=== PATIENT | male | born 1985 | race Caucasian/White ===

== ENCOUNTER 2018-04-28 07:46 | Emergency (ER) | payer MEDICAID ==
[~2018-04-28] VITALS: Ht 175.3 cm; Wt 80.3 kg
--- NOTE | 2018-04-28 07:51 | NUR ---
PT AMBULATES TO BED 11
[2018-04-28 07:55] VITALS: BP 143/91
--- NOTE | 2018-04-28 08:01 | NUR ---
URINE CUP HANDED TO PT FOR SAMPLE----PT STATING UNABLE TO VOID AT THIS TIME
--- NOTE | 2018-04-28 08:01 | NUR ---
PATIENT PRESENTS TO ED WITH c/o intermittent sharp epigastric pain x 3 days; awoke today with pain and repeated emesis denies diarrhea---- SKIN IS PINK/WARM/DRY; AAOX4 WITH EVEN AND STEADY GAIT; LUNGS CLEAR BL; HR EVEN AND REGULAR; PT DENIES ANY FEVER, CP, SOB, OR COUGH AT THIS TIME; PATIENT STATES PAIN OF 10/10 AT THIS TIME; VSS; PATIENT POSITIONED FOR COMFORT; HOB ELEVATED; BEDRAILS UP X2; BED DOWN. ER MD MADE AWARE OF PT STATUS.
[2018-04-28] MEDS ORDERED: ONDANSETRON 4 MG/2 ML VIAL IVP ONE ×2 (08:05→10:00)
[2018-04-28] MEDS ORDERED: NACL 0.9% 1,000 ML IV SCH (08:05)
[2018-04-28] MEDS ORDERED: KETOROLAC 30 MG/ML VIAL IVP ONE (08:05)
[2018-04-28] MEDS ORDERED: PANTOPRAZOLE 40 MG INJ VIAL IVP ONE (08:05)
[2018-04-28 08:37] LABS: BASOPHILS % (AUTO) 0.2 % (0.0-2.0); EOSINOPHILS % (AUTO) 0.2 % (0.0-4.0); HEMOGLOBIN 14.9 g/dL (12.0-18.0); LYMPHOCYTES # (AUTO) 0.9 K/uL (2.0-11.5); LYMPHOCYTES % (AUTO) 7.3 % (20.5-51.1); MEAN CORPUSCULAR HEMOGLOBIN 31 pg (27-31); MEAN CORPUSCULAR HGB CONC 32 g/dL (33-37); MEAN CORPUSCULAR VOLUME 94.9 fL (80-94); MONOCYTES # (AUTO) 0.3 K/uL (0.8-1.0); MONOCYTES % (AUTO) 2.5 % (1.7-9.3); NEUTROPHILS # (AUTO) 11.1 K/uL (1.8-7.7); NEUTROPHILS % (AUTO) 89.8 % (42.2-75.2); PLATELET COUNT (AUTO) 235 K/uL (140-450); RED BLOOD CELL COUNT(AUTO) 4.85 MIL/uL (4.20-6.10); WHITE BLOOD COUNT (AUTO) 12.3 K/uL (4.8-10.8)
[2018-04-28 08:45] LABS: ANION GAP 11.5 (8-16); CARBON DIOXIDE 25.4 mmol/L (21-32); POTASSIUM 3.9 mmol/L (3.5-5.1)
[2018-04-28 08:50] LABS: ALBUMIN 4.3 g/dL (3.4-5.0); TOTAL BILIRUBIN 0.4 mg/dL (0.0-1.0)
[2018-04-28 10:44] VITALS: BP 121/62
--- NOTE | 2018-04-28 10:45 | NUR ---
Patient discharged with v/s stable. Written and verbal after care instructions given and explained. Patient alert, oriented and verbalized understanding of instructions. Ambulatory with steady gait. All questions addressed prior to discharge. ID band removed. Patient advised to follow up with PMD. Rx of pepcid/ zofran given. Patient educated on indication of medication including possible reaction and side effects. Opportunity to ask questions provided and answered.
== END 2018-04-28 10:45 | disposition home or self-care (01) ==
LOC: MED 07:46
DX: K29.70 Gastritis, unspecified, without bleeding (principal); Z88.0 Allergy status to penicillin
CPT/HCPCS: 36415; 80053; 83690; 85025; 96361; 96374; 96375; 96376; 99283; C9113; J1885; J2405; J7030

== ENCOUNTER 2018-07-20 16:17 | Emergency (ER) | payer MEDICAID ==
[~2018-07-20] VITALS: Ht 175.3 cm; Wt 72.7 kg
[2018-07-20 16:28] VITALS: BP 136/79
--- NOTE | 2018-07-20 16:36 | NUR ---
PT AMBULATED TO LOBBY AT THIS TIME WITH VSS.
--- NOTE | 2018-07-20 16:54 | NUR ---
PT AMBULATED TO ER BED 01
--- NOTE | 2018-07-20 16:54 | NUR ---
BIB SELF. AAO X4. C/O VOMITING BLOOD X5 TODAY. PT REPORTS CLEAR VOMIT LAST NIGHT AND THEN THIS MORNING IT CHANGED BRIGHT RED TO DARK BROWN THIS AM. PT REPORTS CRAMPING PAIN 8/10 IN ABD SIDES WHEN VOMITING. PT DENIES CP, SOB, COUGH. PT REPORTS DIARRHEA. PT REPORTS FEELING HOT, CURRENT TEMP 98.7. PT PLACED ON FULL THEOLOGY TEACHER. PT TO BE SEEN BY MD ER.
--- NOTE | 2018-07-20 17:00 | NUR ---
PT UNABLE TO GIVE URINE AT THIS TIME.
[2018-07-20 17:06] LABS: BASOPHILS # (AUTO) 0.1 K/uL (0.00-0.22); BASOPHILS % (AUTO) 0.4 % (0.0-2.0); EOSINOPHILS % (AUTO) 0.2 % (0.0-4.0); HEMATOCRIT 47.3 % (36-52); HEMOGLOBIN 16.2 g/dL (12.0-18.0); LYMPHOCYTES # (AUTO) 1.5 K/uL (2.0-11.5); LYMPHOCYTES % (AUTO) 7.9 % (20.5-51.1); MEAN CORPUSCULAR HEMOGLOBIN 32 pg (27-31); MEAN CORPUSCULAR HGB CONC 34 g/dL (33-37); MEAN CORPUSCULAR VOLUME 92.5 fL (80-94); MONOCYTES # (AUTO) 1.4 K/uL (0.8-1.0); MONOCYTES % (AUTO) 7.1 % (1.7-9.3); NEUTROPHILS # (AUTO) 16.1 K/uL (1.8-7.7); NEUTROPHILS % (AUTO) 84.4 % (42.2-75.2); PLATELET COUNT (AUTO) 249 K/uL (140-450); RED BLOOD CELL COUNT(AUTO) 5.11 MIL/uL (4.20-6.10); RED CELL DISTRIBUTION WIDTH 13.5 % (11.6-13.7); WHITE BLOOD COUNT (AUTO) 19.1 K/uL (4.8-10.8)
[2018-07-20 17:17] LABS: ANION GAP 15.2 (8-16); CARBON DIOXIDE 28.7 mmol/L (21-32); CREATININE 1.5 mg/dL (0.7-1.3); POTASSIUM 3.9 mmol/L (3.5-5.1)
[2018-07-20 17:23] LABS: ALBUMIN 5.1 g/dL (3.4-5.0); PROTHROMBIN TIME 10.2 secs (10.8-13.4); TOTAL BILIRUBIN 0.7 mg/dL (0.0-1.0)
--- NOTE | 2018-07-20 17:40 | NUR ---
DR RICE AT BEDSIDE FOR PT EVALUATION
[2018-07-20] MEDS ORDERED: ONDANSETRON 4 MG ODT PO ONE (17:50)
[2018-07-20] MEDS ORDERED: DICYCLOMINE HCL LIQUID 20 MG, ALUMINUM HYD/MAG/SIMETHICONE 30 ML, LIDOCAINE VISCOUS 2% ... PO ONE ×3 (17:50)
--- NOTE | 2018-07-20 18:00 | NUR ---
PT UNABLE TO GIVE URINE AT THIS TIME.
[2018-07-20 19:15] VITALS: BP 118/87
--- NOTE | 2018-07-20 19:15 | NUR ---
DISCHARGE INSTRUCTIONS GIVEN TO PT. 0/10 ABD PAIN, NO N/V. PT STATES FEELING 100% BETTER. A&OX4. VSS. RX OF MYLANTA AND ZOFRAN GIVEN. SIDE EFFECTS EXPLAINED. INSTRUCTED TO F/U WITH PCP AND WHEN TO RETURN TO ER. PT VERBALLIZED UNDERSTANDING OF DC INSTRUCTIONS. ALL QUETIONS ANSWERED.
== END 2018-07-20 19:15 | disposition home or self-care (01) ==
LOC: MED 16:17
DX: R10.9 Unspecified abdominal pain (principal); R11.10 Vomiting, unspecified; Z88.0 Allergy status to penicillin
CPT/HCPCS: 36415; 74176; 80053; 83690; 85025; 85610; 85730; 86886; 86900; 86901; 99284; Q0162

== ENCOUNTER 2018-07-22 12:54 | Emergency (ER) | payer MEDICAID ==
[~2018-07-22] VITALS: Ht 175.3 cm; Wt 72.6 kg
[2018-07-22 13:01] VITALS: BP 129/89
--- NOTE | 2018-07-22 13:01 | NUR ---
PT AMBULATED TO ER BED 03
--- NOTE | 2018-07-22 13:25 | NUR ---
PATIENT PRESENTS TO ED WITH SHARP RLQ PAIN X TODAY. DENIES N/V/D. PT DENIES ANY FEVER. AFEBRILE AT THIS TIME. PATIENT STATES PAIN OF 9/10; VSS. PATIENT POSITIONED FOR COMFORT. BEDRAILS UP X1.
[2018-07-22] MEDS ORDERED: ONDANSETRON 4 MG/2 ML VIAL IVP ONE (13:55)
[2018-07-22] MEDS ORDERED: NACL 0.9% 1,000 ML IV ONE (13:55)
[2018-07-22] MEDS ORDERED: MORPHINE SULFATE 4 MG/ML SYR IVP ONE (13:55)
--- NOTE | 2018-07-22 14:05 | NUR ---
IV START: L AC 20G, FLUSHED WELL W/O RESISTANCE. PT TOLERATED WELL --LABS DRAWN BY RN, SENT TO LAB W/ TECH.
[2018-07-22 14:21] LABS: BASOPHILS # (AUTO) 0.2 K/uL (0.00-0.22); BASOPHILS % (AUTO) 1.7 % (0.0-2.0); EOSINOPHILS % (AUTO) 0.1 % (0.0-4.0); HEMATOCRIT 52.4 % (36-52); LYMPHOCYTES # (AUTO) 2.2 K/uL (2.0-11.5); LYMPHOCYTES % (AUTO) 14.7 % (20.5-51.1); MEAN CORPUSCULAR HEMOGLOBIN 32 pg (27-31); MEAN CORPUSCULAR HGB CONC 34 g/dL (33-37); MONOCYTES # (AUTO) 1.4 K/uL (0.8-1.0); MONOCYTES % (AUTO) 9.4 % (1.7-9.3); NEUTROPHILS # (AUTO) 10.9 K/uL (1.8-7.7); NEUTROPHILS % (AUTO) 74.1 % (42.2-75.2); PLATELET COUNT (AUTO) 269 K/uL (140-450); RED CELL DISTRIBUTION WIDTH 13.5 % (11.6-13.7); WHITE BLOOD COUNT (AUTO) 14.7 K/uL (4.8-10.8)
[2018-07-22 14:27] LABS: ANION GAP 15.6 (8-16); CARBON DIOXIDE 26.1 mmol/L (21-32); CREATININE 1.5 mg/dL (0.7-1.3); POTASSIUM 3.7 mmol/L (3.5-5.1)
[2018-07-22 14:32] LABS: ALBUMIN 4.9 g/dL (3.4-5.0); PROTHROMBIN TIME 10.2 secs (10.8-13.4); TOTAL BILIRUBIN 1.1 mg/dL (0.0-1.0)
--- NOTE | 2018-07-22 14:48 | NUR ---
PT TAKEN FOR CT SCAN VIA WHEELCHAIR BY TECH.
[2018-07-22] MEDS ORDERED: metroNIDAZOLE 500 MG/NS PREMIX 100 ML IV ONE (16:15)
[2018-07-22] MEDS ORDERED: LEVOFLOXACIN 750 MG/D5W PREMIX 150 ML IV ONE (16:15)
[2018-07-22 17:04] LABS: APPEARANCE,URINE HAZY (CLEAR); BILIRUBIN,URINE 1+ (NEGATIVE); BLOOD, URINE 1+ (NEGATIVE); COLOR,URINE YELLOW (YELLOW); LEUKOCYTE ESTERASE ,URINE NEGATIVE (NEGATIVE); NITRITE, URINE NEGATIVE (NEGATIVE); UGLUCOSE NEGATIVE (NEGATIVE)
[2018-07-22 17:06] LABS: RBC,URINE 0-5 /HPF (0-5); WBC,URINE 0-5 /HPF (0-5)
[2018-07-22 19:16] VITALS: BP 138/86
--- NOTE | 2018-07-22 19:17 | NUR ---
Patient discharged with v/s stable. Written and verbal after care instructions given and explained. Patient alert, oriented and verbalized understanding of instructions. Ambulatory with steady gait. All questions addressed prior to discharge. ID band removed. Patient advised to follow up with PMD. Rx of Tramadol and zofran given. Patient educated on indication of medication including possible reaction and side effects. Opportunity to ask questions provided and answered.
== END 2018-07-22 19:15 | disposition home or self-care (01) ==
LOC: MED 12:54
DX: R10.31 Right lower quadrant pain (principal); R63.0 Anorexia; F17.210 Nicotine dependence, cigarettes, uncomplicated; Z88.0 Allergy status to penicillin; Z71.6 Tobacco abuse counseling
CPT/HCPCS: 36415; 74176; 76705; 80053; 81001; 82150; 83690; 85025; 85610; 85730; 96365; 96367; 96375; 99284; J1956; J2270; J2405; J3490; J7030; Q0092

== ENCOUNTER 2019-08-15 09:30 | Emergency (ER) | payer SELFPAY ==
[~2019-08-15] VITALS: Ht 175.3 cm; Wt 81.6 kg
[2019-08-15 09:42] VITALS: BP 118/78
--- NOTE | 2019-08-15 09:59 | NUR ---
C/O UMBILICAL CRAMPY PAIN, N/V, DIZZINESS, LOSS OF APPITITE X LAST FEW DAYS. LAST BM 2 DAYS AGO. FSBS 171 AT THIS TIME ONLY SYMPTOMS NOW IS NAUSEA AND DIZZINESS. STATES VOMITING THROUGHOUT THE LAST NIGHT, NONBLOODY. FELT PRESYNCOPAL FOR 10 MIN WHILE GETTING UP AFTER VOMITING BUT DID NOT PASS OUT. PAIN SUBSIDED AFTER VOMITING. DENIES FEVER. ONLY THING THAT HELPS RELIEVE NAUSEA IS ICE CHIPS. MED HX: DENIES
--- NOTE | 2019-08-15 10:05 | NUR ---
PT ASKED TO PROVIDE URINE SAMPLE; VERBALIZED UNDERSTANDING
--- NOTE | 2019-08-15 10:19 | NUR ---
PT AMB TO BATHROOM TO PROVIDE URINE SAMPLE
--- NOTE | 2019-08-15 10:22 | NUR ---
DR HARVEY EVALUATING PT AT BEDSIDE
[2019-08-15] MEDS ORDERED: NACL 0.9% 1,000 ML IV SCH (10:24)
[2019-08-15] MEDS ORDERED: ONDANSETRON 4 MG/2 ML VIAL IVP ONE (10:25)
--- NOTE | 2019-08-15 10:30 | NUR ---
BLOOD DRAW HANDED TO AUTOCLAVE OPERATOR AT BEDSIDE
[2019-08-15 10:38] LABS: BASOPHILS # (AUTO) 0.1 K/uL (0.00-0.22); BASOPHILS % (AUTO) 0.6 % (0.0-2.0); HEMATOCRIT 48.2 % (36-52); HEMOGLOBIN 16.7 g/dL (12.0-18.0); LYMPHOCYTES # (AUTO) 4.2 K/uL (2.0-11.5); MEAN CORPUSCULAR HEMOGLOBIN 32 pg (27-31); MEAN CORPUSCULAR HGB CONC 35 g/dL (33-37); MEAN CORPUSCULAR VOLUME 92.6 fL (80-94); MONOCYTES # (AUTO) 0.4 K/uL (0.8-1.0); MONOCYTES % (AUTO) 3.4 % (1.7-9.3); NEUTROPHILS # (AUTO) 6.1 K/uL (1.8-7.7); PLATELET COUNT (AUTO) 283 K/uL (140-450); RED CELL DISTRIBUTION WIDTH 13.9 % (11.6-13.7); WHITE BLOOD COUNT (AUTO) 10.7 K/uL (4.8-10.8)
[2019-08-15 11:02] LABS: ALBUMIN 4.2 g/dL (3.4-5.0); ANION GAP 17.4 (8-16); CARBON DIOXIDE 23.1 mmol/L (21-32); CREATININE 1.4 mg/dL (0.6-1.3); POTASSIUM 4.5 mmol/L (3.5-5.1); TOTAL BILIRUBIN 0.4 mg/dL (0.0-1.0)
--- NOTE | 2019-08-15 11:15 | NUR ---
PT DENIES NAUSEA AT THIS TIME
--- NOTE | 2019-08-15 11:21 | NUR ---
DR. HARVEY RE-EVALUATING PT AT BEDSIDE
--- NOTE | 2019-08-15 11:21 | NUR ---
Pedro ambrosio in ED - 08/15/[address] HARVEY EVALUATING PT AT BEDSIDE
[2019-08-15 11:38] VITALS: BP 128/88
--- NOTE | 2019-08-15 11:38 | NUR ---
Patient discharged with v/s stable. Written and verbal after care instructions given and explained. Patient alert, oriented and verbalized understanding of instructions. Ambulatory with steady gait. All questions addressed prior to discharge. ID band removed. Patient advised to follow up with PMD. Rx of ZOFRAN AND MOTRIN given. Patient educated on indication of medication including possible reaction and side effects. Opportunity to ask questions provided and answered.
== END 2019-08-15 11:38 | disposition home or self-care (01) ==
LOC: MED 09:30
DX: R10.13 Epigastric pain (principal); R11.2 Nausea with vomiting, unspecified; E11.9 Type 2 diabetes mellitus without complications; Z88.0 Allergy status to penicillin
CPT/HCPCS: 36415; 80053; 83690; 85025; 96361; 96374; 99283; J2405; J7030

== ENCOUNTER 2019-08-16 14:21 | Emergency (ER) | payer MEDICAID ==
[~2019-08-16] VITALS: Ht 172.7 cm; Wt 81.6 kg
[2019-08-16 14:32] VITALS: BP 128/79
[2019-08-16] MEDS ORDERED: NACL 0.9% 1,000 ML IV SCH (14:47)
[2019-08-16] MEDS ORDERED: LIDOCAINE VISCOUS 2% 20 ML UDC ONE (14:49)
[2019-08-16] MEDS ORDERED: ALUMINUM HYD/MAG/SIMETHICONE 30 ML UDC ONE (14:49)
[2019-08-16] MEDS ORDERED: DICYCLOMINE HCL LIQUID 10 MG/5 ML UDC ONE (14:49)
[2019-08-16] MEDS ORDERED: ALUMINUM HYD/MAG/SIMETHICONE 30 ML, DICYCLOMINE HCL LIQUID 20 MG, LIDOCAINE VISCOUS 2% ... PO ONE ×3 (14:50)
[2019-08-16] MEDS ORDERED: ONDANSETRON 4 MG/2 ML VIAL IVP ONE (14:50)
[2019-08-16] MEDS ORDERED: KETOROLAC 30 MG/ML VIAL IVP ONE (14:50)
[2019-08-16 15:22] LABS: BASOPHILS # (AUTO) 0.1 K/uL (0.00-0.22); BASOPHILS % (AUTO) 0.7 % (0.0-2.0); EOSINOPHILS % (AUTO) 0.1 % (0.0-4.0); HEMATOCRIT 45.8 % (36-52); HEMOGLOBIN 15.2 g/dL (12.0-18.0); LYMPHOCYTES # (AUTO) 3.2 K/uL (2.0-11.5); LYMPHOCYTES % (AUTO) 30.2 % (20.5-51.1); MEAN CORPUSCULAR HEMOGLOBIN 31 pg (27-31); MEAN CORPUSCULAR HGB CONC 33 g/dL (33-37); MEAN CORPUSCULAR VOLUME 93.7 fL (80-94); MONOCYTES # (AUTO) 0.7 K/uL (0.8-1.0); MONOCYTES % (AUTO) 6.5 % (1.7-9.3); NEUTROPHILS # (AUTO) 6.7 K/uL (1.8-7.7); NEUTROPHILS % (AUTO) 62.5 % (42.2-75.2); PLATELET COUNT (AUTO) 281 K/uL (140-450); RED BLOOD CELL COUNT(AUTO) 4.89 MIL/uL (4.20-6.10); RED CELL DISTRIBUTION WIDTH 13.9 % (11.6-13.7); WHITE BLOOD COUNT (AUTO) 10.7 K/uL (4.8-10.8)
--- NOTE | 2019-08-16 15:24 | NUR ---
34 Y/O MALE BIB SELF C/O RLQ PAIN X2 DAYS. RLQ ACHING PAIN 8/10 UNRELIEVED BY IBUPROFEN 800MG. PT STATES YEST HE WAS EXPERIENCING N/V/D, TODAY IS ONLY EXPERIENCING NAUSEA, HAS NOT HAD ANY EPISODES OF EMESIS. VSS. RESP EVEN AND UNLABORED. LUNG SOUNDS CLEAR IN ALL LOBES. BOWEL SOUNDS NORMOACTIVE IN ALL QUADRANTS. ABD SOFT/NON DISTENDED. NO PMH ALLERGIES: PENICILLIN
[2019-08-16 15:45] LABS: ALBUMIN 3.9 g/dL (3.4-5.0); ANION GAP 16.6 (8-16); CARBON DIOXIDE 23.4 mmol/L (21-32); CREATININE 1.1 mg/dL (0.6-1.3); TOTAL BILIRUBIN 0.5 mg/dL (0.0-1.0)
--- NOTE | 2019-08-16 16:19 | NUR ---
PT AWAKE AND ALERT, STATES PAIN HAS DECREASED TO A 3/10.
--- NOTE | 2019-08-16 16:32 | NUR ---
PT TRANSFERRED TO CT VIA WC
--- NOTE | 2019-08-16 16:55 | NUR ---
PT BACK FROM CT SCAN
[2019-08-16] MEDS ORDERED: HYDROcodone/APAP 5/325 MG 1 TAB TAB PO ONE (17:25)
[2019-08-16 17:38] VITALS: BP 128/79
== END 2019-08-16 17:38 | disposition home or self-care (01) ==
LOC: MED 14:21
DX: R10.31 Right lower quadrant pain (principal); R11.2 Nausea with vomiting, unspecified; R63.0 Anorexia; Z88.0 Allergy status to penicillin
CPT/HCPCS: 36415; 74177; 80053; 81002; 82150; 83690; 85025; 96361; 96374; 96375; 99285; J1885; J2405; J7030; Q9967